=== PATIENT | male | born 1955 | race Caucasian/White ===

== ENCOUNTER → 2017-10-10 00:39 | Outpatient (CLI) | payer BC, SELFPAY ==
[2017-10-10 10:09] LABS: Hemoglobin A1C 8.1 % (4.5-6.2)
[2017-10-10 10:54] LABS: Cholesterol 232 mg/dL (50-200); HDL Cholesterol 35 mg/dL (40-60); LDL CHOLESTEROL 164 mg/dL (<100); Triglyceride 197 mg/dL (30-150)
== END ==
PROVIDERS: PCP Family Medicine; Visit Provider Family Medicine
DX: E11.21 Type 2 diabetes mellitus with diabetic nephropathy (principal); E78.2 Mixed hyperlipidemia
CPT/HCPCS: 36415; 80061; 83721; 83036

== ENCOUNTER → 2017-10-14 01:16 | Outpatient (CLI) | payer BC, SELFPAY ==
--- NOTE | 2017-10-14 12:30 | MERGE_ITS ---
*[facility]* *[facility]* [address] [place] [address] Date of study: 10/14/2017 Transthoracic Echocardiography M-mode, complete 2D, complete spectral Doppler, and color Doppler *STUDY CONCLUSIONS* Summary: 1. Left ventricle: The cavity size was normal. There was mild focal basal hypertrophy of the septum. Systolic function was normal. The estimated ejection fraction was 55-60%. Wall motion was normal; there were no regional wall motion abnormalities. Findings consistent with diastolic dysfunction. 2. Ascending aorta: The ascending aorta was mildly dilated. 4.1 cm. 3. Right ventricle: The cavity size was normal. Wall thickness was normal. Pacer wire noted in right ventricle. Systolic function was normal. 4. Pulmonary arteries: Pulmonary systolic pressure was within the normal range, in the range of 30mm Hg to 35mm Hg. *PATIENT PRESENTATION* Height: 172.7cm ((68in) ) S/D Pressure: Weight: 117.9kg ((259.5lb) ) BSA: 2.43m^2 Test start time: 12:40 PM. Test stop time: 01:40 PM. PERFORMING Unknown PERFORMING [facility] ORDERING Amber Blandon REFERRING Amber Blandon FRANCHISE DEVELOPMENT MANAGER RT Rush (R)(CT), WALDO *PROCEDURE DATA* Procedure information: The patient was identified by two identifiers. This study was interpreted by [facility]. Pertinent images and digital data are archived for permanent storage and are available for subsequent review. Study status: Routine. Transthoracic echocardiography. M-mode, complete 2D, complete spectral Doppler, and color Doppler. A Transthoracic Echocardiogram was performed. Scanning was performed from the parasternal, apical, subcostal, and suprasternal notch acoustic windows. Images were obtained using an [id number] cardiac ultrasound machine. Image quality was adequate. Study completion: The patient tolerated the procedure well. There were no complications. History: PMH: Activity intolerance. SOB. *CARDIAC ANATOMY* Left ventricle: The cavity size was normal. There was mild focal basal hypertrophy of the septum. Systolic function was normal. The estimated ejection fraction was 55-60%. Wall motion was normal; there were no regional wall motion abnormalities. Findings consistent with diastolic dysfunction. Aortic valve: Trileaflet; normal thickness leaflets. Mobility was not restricted. Doppler: Transvalvular velocity was within the normal range. There was no stenosis. There was no significant regurgitation. VTI ratio of LVOT to aortic valve: 0.78. Valve area (VTI): 2.5cm^2. Indexed valve area (VTI): 1cm^2/m^2. Peak velocity ratio of LVOT to aortic valve: 0.6. Valve area (Vmax): 1.9cm^2. Indexed valve area (Vmax): 0.8cm^2/m^2. Mean velocity ratio of LVOT to aortic valve: 0.7. Valve area (Vmean): 2.3cm^2. Indexed valve area (Vmean): 0.9cm^2/m^2. Mean gradient (S): 2.2mm Hg. Peak gradient (S): 4.1mm Hg. Aorta: Aortic root: The aortic root was at upper normal limits. Ascending aorta: The ascending aorta was mildly dilated. 4.1 cm. Mitral valve: Structurally normal valve. Mobility was not restricted. Doppler: Transvalvular velocity was within the normal range. There was no evidence for stenosis. There was trivial regurgitation. Valve area by pressure half-time: 3.2cm^2. Indexed valve area by pressure half-time: 1.3cm^2/m^2. Peak gradient (D): 2.2mm Hg. Left atrium: The atrium was normal in size. Right ventricle: The cavity size was normal. Wall thickness was normal. Pacer wire noted in right ventricle. Systolic function was normal. Pulmonic valve: The pulmonary valve appears to be grossly normal. Doppler: Transvalvular velocity was within the normal range. There was no evidence for stenosis. There was no significant regurgitation. Tricuspid valve: Structurally normal valve. Doppler: Transvalvular velocity was within the normal range. There was no evidence for stenosis. There was trivial regurgitation. Pulmonary artery: Pulmonary systolic pressure was within the normal range, in the range of 30mm Hg to 35mm Hg. Right atrium: The atrium was normal in size. Pacer wire noted in right atrium. Pericardium: There was no pericardial effusion. Systemic veins: Inferior vena cava: The vessel was normal in size. Measurements Left ventricle Value Reference LV ID, ED, PLAX 5.2 cm 3.5 - 6.0 LV ID, ES, PLAX 3.1 cm 2.1 - 4.0 LV PW thickness, ED, PLAX 1.3 cm LV end-diastolic volume, 1-p A2C 80 ml LV ejection fraction, 1-p A2C 55 % LV end-diastolic volume, 1-p A4C 105 ml LV ejection fraction, 1-p A4C 61 % LV e', lateral 0.133 m/sec LV E/e', lateral 6 LV e', medial 0.088 m/sec LV E/e', medial 8 LV e', average 0.111 m/sec LV E/e', average 7 Ventricular septum Value Reference IVS thickness, ED, PLAX 1.1 cm LVOT Value Reference LVOT ID, A-P 2.0 cm LVOT area 3.2 cm^2 LVOT peak velocity, S 0.6 m/sec LVOT mean velocity, S 0.5 m/sec LVOT VTI, S 12.1 cm LVOT peak gradient, S 1.5 mm Hg LVOT mean gradient, S 1 mm Hg Stroke volume (SV), LVOT DP 39 ml Stroke index (SV/bsa), LVOT DP 16 ml/m^2 Aortic valve Value Reference Aortic valve peak velocity, S 1 m/sec Aortic valve mean velocity, S 0.7 m/sec Aortic valve VTI, S 15.5 cm Aortic mean gradient, S 2.2 mm Hg Aortic peak gradient, S 4.1 mm Hg VTI ratio, LVOT/AV 0.78 Aortic valve area, VTI 2.5 cm^2 Velocity ratio, peak, LVOT/AV 0.6 Aortic valve area, peak velocity 1.9 cm^2 Velocity ratio, mean, LVOT/AV 0.7 Aortic valve area, mean velocity 2.3 cm^2 Aortic valve area/bsa, mean velocity 0.9 cm^2/m^2 Aorta Value Reference Aortic root ID, ED 3.8 cm Ascending aorta ID, A-P, S 4.1 cm Left atrium Value Reference LA ID, A-P, ES 3.7 cm LA ID/bsa, A-P 1.5 cm/m^2 <=2.2 LA area, ES, A4C 21.2 cm^2 8.8 - 23.4 LA area, ES, A2C 18 cm^2 LA volume/bsa, ES, 1-p A4C 33 ml/m^2 LA volume, ES, 2-p 60 ml LA volume/bsa, ES, 2-p 25 ml/m^2 LA/aortic root ratio 0.98 Mitral valve Value Reference Mitral E-wave peak velocity 0.74 m/sec Mitral A-wave peak velocity 0.43 m/sec Mitral deceleration time (H) 238 ms 150 - 230 Mitral pressure half-time 69 ms Mitral peak gradient, D 2.2 mm Hg Mitral E/A ratio, peak 1.74 Mitral valve area, PHT, DP 3.2 cm^2 Pulmonary veins Value Reference Pulmonary vein peak velocity, S 0.75 m/sec Pulmonary vein peak velocity, D 0.56 m/sec Pulmonary vein velocity ratio, peak, 1.32 S/D Pulmonary vein A-wave reversal peak 0.29 m/sec velocity Tricuspid valve Value Reference Tricuspid regurg peak velocity 2.7 m/sec Tricuspid peak RV-RA gradient 28.7 mm Hg Right atrium Value Reference RA area, ES, A4C 19.3 cm^2 8.3 - 19.5 Legend: (L) and (H) janie values outside specified reference range. I have personally reviewed the images and have reviewed and edited the reported findings. Electronically signed by Nadeem Merino 10/14/2017 14:38
== END ==
PROVIDERS: PCP Family Medicine; Visit Provider Nurse Practitioner Primary Care
DX: R06.02 Shortness of breath (principal); I51.9 Heart disease, unspecified; Z95.0 Presence of cardiac pacemaker; R68.89 Other general symptoms and signs
CPT/HCPCS: 93306

== ENCOUNTER 2018-02-24 13:06 | Emergency (ER) | payer BC, SELFPAY ==
[2018-02-24 13:11] VITALS: BP 128/84; PULSE 82; RESP 16; TEMP 37; O2SAT 98
--- NOTE | 2018-02-24 13:12 | ED.GENADUL_ITS ---
Discharge Plan Disposition Patient Disposition: HOME Condition: Stable Discharge Details Chief Complaint: Nk/Back Pain Clinical Impression: Acute tonsillitis, Trismus Primary Care Provider: Melany Mazariegos ED Provider: Pedro Pride Home Meds and New Rx's Prescriptions: New amoxicillin-pot clavulanate 875-125 mg tablet 1 tab PO BID Qty: 14 RF: 0 Continued fluticasone 16 GM spray,suspension 2 spry NS DAILY Qty: 1 RF: 3 aspirin 81 MG tablet,chewable 81 mg PO DAILY Qty: 90 RF: 3 ProAir HFA 8.5 GM HFA aerosol inhaler 1 - 2 puff Inhalation Q4H PRN Qty: 1 RF: 1 Januvia 100 MG tablet 100 mg PO DAILY Qty: 30 RF: 2 lisinopril 10 MG tablet 10 mg PO DAILY Qty: 90 RF: 4 Rosuvastatin Calcium 40 MG tablet 40 mg PO DAILY Qty: 90 RF: 4 metformin 1,000 MG tablet 1,000 mg PO BID Qty: 180 RF: 4 meloxicam 15 mg tablet 15 mg PO DAILY PRN (Reason: pain) Qty: 30 RF: 2 Discharge Instructions Instructions: Pharyngitis (ED) Additional Instructions: follow up with your primary care provider next week especially if symptoms continue if you have difficulty breathing, severe worsening pain or new symptoms such as severe headaches or abdominal pain return to the emergency department Medical Decision Making 63 yo male comes in with chief complaint of throat pain, difficulty swallowing, and posterior neck pain.Has no fevers or meningismus or headaches to suggest certified mortician infection. Does have some trismus, mild posterior pharynx erythema. Does also have pain over hyoid, suspect pharyngitis but given the pain over hyoid and trismus will obtain ct to eval for rpa, epiglotitis, captain waiter pt remains stable, ambulating without symptoms, labs show no acute abnormalities, per Dr. Jauregui has tonsillitis on ct otherwise no acute findings. Will start abx to cover for bacterial infection, advised f/u with pcp and return precautions given Differential Diagnosis rpa, captain waiter, epiglotitis, ludwigs Imaging Data Radiologic Study: Attestation: I personally reviewed and interpreted this imaging study as follows: Imaging: X-Ray Radiologist's impression: tonsillitis, no acute findings Lab Data Lab results reviewed: Yes I reviewed the patient's lab results. HPI General Mode of arrival: ambulatory . Date/Time Provider Initiated Documentation: 02/24/18 13:07 . Limitations to Documentation: no limitations . Information obtained by: patient . History of Present Illness 63 year old M presents to the emergency department with the chief complaint of throat pain, described as moderate, with intensity rated at 5. Quality is described as aching, and is localized to the mouth and neck. Patient reports no radiation. Patient started experiencing this day(s) (3) and it has been constant. No relieving factors improve symptom(s), No exacerbating factors reported . Patient notes no other symptoms.. Patient did receive the following treatments prior to arrival, none Related Data Home Medications Medication Instructions Recorded Confirmed fluticasone 2 spry NS DAILY #1 spray 01/10/15 02/24/18 aspirin 81 mg PO DAILY #90 tab-cap 04/16/16 02/24/18 ProAir HFA 1 - 2 puff INHALATION Q4H PRN #1 11/26/16 02/24/18 inhaler Januvia 100 mg PO DAILY #30 tab-cap 12/18/16 02/24/18 lisinopril 10 mg PO DAILY #90 tab-cap 02/06/17 02/24/18 metformin 1,000 mg PO BID #180 tab-cap 09/28/17 02/24/18 amoxicillin-pot clavulanate 1 tab PO BID #14 tab 02/24/18 meloxicam 15 mg tablet 15 mg PO DAILY PRN #30 tab-cap 02/24/18 02/24/18 Previous Rx's Medication Instructions Recorded ProAir HFA 1 - 2 puff INHALATION Q4H PRN #1 11/26/16 inhaler Januvia 100 mg PO DAILY #30 tab-cap 12/18/16 lisinopril 10 mg PO DAILY #90 tab-cap 02/06/17 metformin 1,000 mg PO BID #180 tab-cap 09/28/17 amoxicillin-pot clavulanate 1 tab PO BID #14 tab 02/24/18 meloxicam 15 mg tablet 15 mg PO DAILY PRN #30 tab-cap 02/24/18 Allergies Allergy/AdvReac Type Severity Reaction Status Date / Time codeine AdvReac Intermediate chest pain Unverified 02/24/18 13:14 bee stings Allergy Intermediate pt would Uncoded 02/24/18 13:14 want to sleep Review of Systems Review of Systems All systems reviewed & are unremarkable except as noted in HPI and below Constitutional Denies chills, Denies fever(s) and Denies weakness Cardiovascular Denies chest pain and Denies dyspnea Respiratory Denies dyspnea Gastrointestinal Denies abdominal pain, Denies nausea and Denies vomiting Musculoskeletal Denies joint swelling Neurologic Denies weakness Psychiatric Denies depression Endocrine Denies heat intolerance PFSH Medical History Cardiac arrhythmia Colon polyp Diabetes Hyperlipidemia Incisional hernia Kidney stones Morbid obesity MILTON (obstructive sleep apnea) Partial small bowel obstruction Small bowel obstruction due to adhesions Surgical History Appendectomy (04/07/11) Colonoscopy - MAC (05/26/16) Hernia Repair, Incisional (11/21/15) Laparotomy Pacemaker Social History Smoking/Tobacco Use Status: Former Tobacco Use Exam Const General: no acute distress Orientation: alert HENMT Head: normal to inspection Ears: external ears normal General nose exam: external nose normal Mouth: moist mucous membranes Eyes General: appearance normal, both eyes and all related structures Neck Neck: normal visual inspection Resp Effort & Inspection: normal respiratory effort and able to speak in complete sentences Cardio Rate: regular rate Skin General skin exam: no rashes or lesions noted Neuro General: alert and oriented x3 Extrem General: normal to inspection Psych Mental Status: mental status grossly normal
--- NOTE | 2018-02-24 13:23 | DI.CT_ITS ---
SYMPTOMS/DIAGNOSIS: NECK PAIN AND DIFFICULTY SWALLOWING NECK CT: The study was carried out according to the usual protocol without contrast enhancement. Due to the patient's body habitus, sagittal and coronal images could not be obtained and the study is composed only of the axial projections. There is considerable tonsillar prominence bilaterally. There is no evidence of a peritonsillar abscess. There is no evidence of an extra-tonsillar mass or adenopathy. The salivary glands as visualized appear intact. The pharynx and larynx and visualized portions of the trachea appear intact. Note is made of pacing wires in place in the right atrium and right ventricle. The heart is not enlarged. There is no demonstrated pericardial effusion. There is no pleural effusion. The visualized portions of the mid lung and lower lobe regions appear grossly unremarkable. There is no demonstrated aortic aneurysm or evidence of a pulmonary mass or adenopathy. Incidentally, the thyroid gland is normal. No adenopathy is noted in the neck. SUMMARY: Findings consistent with tonsillitis. There is no apparent peritonsillar abscess.
[2018-02-24] MEDS: Dexamethasone 10 MG/ML VIAL IVP (13:31)
[2018-02-24] MEDS: Normal Saline 1,000 ML 1000 ML IV (13:31)
[2018-02-24] MEDS: Normal Saline Flush 10 ML SYR IVP (13:32)
[2018-02-24 13:45] LABS: Lactate-non-spesis 1.2 mmol/L (0.6-1.4)
[2018-02-24 13:59] LABS: Abs Immature Grans 0.03 k/cumm (0.0-0.09); Absolute Basophil Count 0.02 k/cumm (0.0-0.2); Absolute Eosinophil Count 0.33 k/cumm (0.0-0.7); Absolute Lymphocyte Count 2.47 k/cumm (1.2-3.4); Absolute Monocyte Count 0.71 k/cumm (0.11-0.7); Absolute Neutrophil Count 4.88 k/cumm (1.2-6.7); Basophils % 0.2; Eosinophils % 3.9; HCT 41.8 % (40.0-50.0); HGB 14.4 g/dL (13.5-17.5); Immature Grans % 0.4; Lymphocytes % 29.3; Mean Corp. HGB Concentration 34.4 g/dL (32.0-36.0); Mean Corpuscular Hemoglobin 30.9 pg (27.0-33.0); Mean Corpuscular Volume 89.7 fL (80-95); Mean Platelet Volume 10.8 fL (8.0-11.0); Monocytes % 8.4; Neutrophils % 57.8; Platelet Count 188 x1000/uL (130-400); RBC 4.66 m/cumm (4.50-6.00); RBC Distribution Width 12.7 % (11.8-14.1); White Blood Cell Count 8.44 k/cumm (4.4-10.8)
[2018-02-24 14:01] LABS: ALT 35 U/L (12-78); AST 14 U/L (15-37); Albumin 3.6 g/dL (3.4-5.0); Alkaline Phosphatase 86 U/L (46-116); Anion Gap 9.8 mmol/L (3-11); BUN 18 mg/dL (7-18); Bilirubin, Total 0.2 mg/dL (0.2-1.0); CO2 27.2 mmol/L (21.0-32.0); CREATININE 0.86 mg/dL (0.70-1.30); Calcium 9.2 mg/dL (8.5-10.1); Chloride 102 mmol/L (98-107); Glucose 210 mg/dL (70-100); Magnesium 2.1 mg/dL (1.8-2.4); Potassium 4.2 mmol/L (3.5-5.1); Sodium 139 mmol/L (136-145); Total Protein 7.6 g/dL (6.4-8.2)
[2018-02-24] MEDS: Omnipaque 350 MG/ML 100 ML BTL IJ (14:03)
== END 2018-02-24 15:27 | disposition home or self-care (01) ==
PROVIDERS: Emergency Provider Emergency Medicine; PCP Family Medicine
DX: J03.90 Acute tonsillitis, unspecified (principal); R25.2 Cramp and spasm
CPT/HCPCS: 36415; 70491; 80053; 96361; 96374; 99285; 83605; 83735; 85025; 99284; J1100; J3490

== ENCOUNTER 2018-11-25 07:36 | Outpatient (CLI) | payer OTHER, SELFPAY ==
[2018-11-25 11:08] LABS: COMMENT (LAB VIEW ONLY) 114.09 mg/dL
[2018-11-25 11:09] LABS: Microalb ug/mg Crea 241.3 ug/mg Cr
[2018-11-25 11:15] LABS: Hemoglobin A1C 9.3 % (4.5-6.2)
[2018-11-25 11:19] LABS: ALT 85 U/L (16-63); AST 44 U/L (15-37); Alkaline Phosphatase 94 U/L (46-116); Anion Gap 14.5 mmol/L (3-11); BUN 17 mg/dL (7-18); Bilirubin, Total 0.2 mg/dL (0.2-1.0); CO2 24.5 mmol/L (21.0-32.0); CREATININE 1.01 mg/dL (0.70-1.30); Calcium 9.4 mg/dL (8.5-10.1); Calculated LDL 122 mg/dL; Chloride 102 mmol/L (98-107); Cholesterol 216 mg/dL (50-200); Glucose 233 mg/dL (70-100); HDL Cholesterol 33 mg/dL (40-60); Potassium 4.3 mmol/L (3.5-5.1); Sodium 141 mmol/L (136-145); Total Protein 7.3 g/dL (6.4-8.2); Triglyceride 309 mg/dL (30-150)
== END 2018-11-25 07:56 ==
PROVIDERS: PCP Family Medicine; Visit Provider Family Medicine
DX: E78.5 Hyperlipidemia, unspecified (principal); E11.9 Type 2 diabetes mellitus without complications
CPT/HCPCS: 36415; 80053; 80061; 82043; 82570; 83036

== ENCOUNTER 2019-08-30 01:17 | Outpatient (CLI) | payer OTHER, SELFPAY ==
[2019-08-30 10:09] LABS: Hemoglobin A1C 12.2 % (3.8-5.6)
[2019-08-30 10:53] LABS: AST 48 U/L (15-37); Albumin 4.1 g/dL (3.4-5.0); Alkaline Phosphatase 91 U/L (46-116); Anion Gap 16.4 mmol/L (3-11); BUN 23 mg/dL (7-18); Bilirubin, Total 0.4 mg/dL (0.2-1.0); CO2 20.6 mmol/L (21.0-32.0); CREATININE 1.11 mg/dL (0.70-1.30); Calcium 9.6 mg/dL (8.5-10.1); Chloride 98 mmol/L (98-107); Glucose 316 mg/dL (74-106); Potassium 4.1 mmol/L (3.5-5.1); Sodium 135 mmol/L (136-145); Total Protein 7.4 g/dL (6.4-8.2)
[2019-08-30 11:23] LABS: ALT 77 U/L (16-63)
[2019-08-30 13:36] LABS: COMMENT (LAB VIEW ONLY) 122.62 mg/dL
[2019-08-30 13:38] LABS: Microalb ug/mg Crea 339.7 ug/mg Cr
[2019-08-30 14:42] LABS: Cholesterol 293 mg/dL (<200); HDL Cholesterol 34 mg/dL (40-60); Triglyceride 589 mg/dL (<150)
[2019-08-30 14:57] LABS: LDL CHOLESTEROL 158 mg/dL (<100)
== END 2019-08-30 01:37 ==
PROVIDERS: PCP Family Medicine; Visit Provider Family Medicine
DX: E11.9 Type 2 diabetes mellitus without complications (principal)
CPT/HCPCS: 36415; 80053; 80061; 83721; 82043; 82570; 83036

== ENCOUNTER 2019-09-30 01:20 | Outpatient (CLI) | payer OTHER, SELFPAY ==
--- NOTE | 2019-09-30 14:00 | NS.NUTBLAN_ITS ---
Trae comes as an outpatient with referral for DM w/ elevated BG and A1C (>12). He is currently ~275lb w/ BMI >40 indicating morbid obesity. He has hx cardiac arrhythmia. Noted: K+ levels were WNL. His main concerns are potential for hypoglycemia r/t recent increase in insulin dose, help with weight loss, and he reports he needs a review of meal planning and appropriate food choices and portions. His BG levels were in the 300's until a recent titrated increase of Lantus from 15 to 45 units. He is on 1000mg metformin BID. Trae reports that he feels less tired and has less blurry vision at this time. A random glucometer reading revealed 289mg/dl ~ 2 hours postprandial. He stated that he had a dream bar dessert and sometimes struggles with poor food choices. He arrived with a very detailed BG record and recommendations from pharmacist for daily CHO and k/shelli intake. INTERVENTION: Reviewed CHO counting, s/s for hypo and hyperglycemia and meal planning tips. Provided take home literature and online references to facilitate mindfulness r/t DM. Encouraged fresh whole foods and cooking more vegetables as a lifestyle change to help w/ DM self management.. Demonstrated carbViaCube and cals phone janae to help with simplified approach to CHO content as r/t portion sizes and food choices. Reviewed the desired BG goals and explained the concept of relative hypoglycemia. Recommended short walk of 100meters/day adding 1 step each day to goal of one mile.Reviewed importance of pocket setter lockstitch, dentist and automation developer being made aware of recent developments with his DM. Recommended <60g/CHO per meal period. Established safe parameters for weight loss. MONITOR and EVALUATE: Trae may be a good candidate for CGM per MD approval. He will F/U with this RD in 60 days for a review of weight and BG tracking. He will get podiatry referral from PCP. Time Spent : 1 hr/ 4 units
== END 2019-09-30 01:40 ==
PROVIDERS: PCP Family Medicine; Visit Provider Dietitian, Registered
DX: E11.65 Type 2 diabetes mellitus with hyperglycemia (principal); Z79.4 Long term (current) use of insulin; E66.01 Morbid (severe) obesity due to excess calories; Z71.3 Dietary counseling and surveillance
CPT/HCPCS: 97802

== ENCOUNTER 2020-11-22 03:06 | Outpatient (CLI) | payer SELFPAY ==
[2020-11-22 10:37] LABS: COMMENT (LAB VIEW ONLY) 264.88 mg/dL
[2020-11-22 10:37] LABS: ALT 54 U/L (16-63); AST 19 U/L (15-37); Alkaline Phosphatase 112 U/L (46-116); Anion Gap 11.1 mmol/L (3-11); BUN 16 mg/dL (7-18); Bilirubin, Total 0.3 mg/dL (0.2-1.0); CO2 23.9 mmol/L (21.0-32.0); CREATININE 1.2 mg/dL (0.70-1.30); Calcium 9.3 mg/dL (8.5-10.1); Chloride 104 mmol/L (98-107); Cholesterol 323 mg/dL (<200); Glucose 238 mg/dL (74-106); HDL Cholesterol 32 mg/dL (40-60); Potassium 4.3 mmol/L (3.5-5.1); Sodium 139 mmol/L (136-145); TSH 1.04 uIU/mL (0.36-3.74); Total Protein 7.1 g/dL (6.4-8.2); Triglyceride 529 mg/dL (<150)
[2020-11-22 10:53] LABS: Microalb ug/mg Crea 305.8 ug/mg Cr
[2020-11-22 10:55] LABS: LDL CHOLESTEROL 179 mg/dL (<100)
[2020-11-22 17:10] LABS: PSA, Screening 0.8 ng/mL (0.0-4.5)
== END 2020-11-22 03:07 | disposition home or self-care (01) ==
LOC: LBO 03:06
PROVIDERS: PCP Family Medicine; Visit Provider Family Medicine
DX: E11.9 Type 2 diabetes mellitus without complications; K40.00 Bilateral inguinal hernia, with obstruction, without gangrene, not specified as recurrent
CPT/HCPCS: 36415; 80053; 80061; 83721; 84153; 82043; 82570; 84443

== ENCOUNTER 2021-01-07 04:17 | Emergency (ER) | payer MEDICARE, SELFPAY ==
[2021-01-07] VITALS (16 sets, daily range): BP systolic 103–164; BP diastolic 58–95; PULSE 89–111; RESP 20–21; TEMP 36.1–36.8; O2SAT 92–97
--- NOTE | 2021-01-07 04:30 | DI.RAD_ITS ---
Exam(s) XR PORTABLE CHEST AP EXAM: XR PORTABLE CHEST AP CLINICAL HISTORY: cough. TECHNIQUE: 2D digital imaging was performed. COMPARISON: CR CHEST 2 VIEWS PA,LAT from 11/18/2016 FINDINGS: Mild cardiomegaly. Bipolar right subclavian pacemaker again noted with lead tips in RA and RV, uncha nged There is a mild pulmonary venous hypertension pattern but no airspace pulmonary edema and no pleural effusions evident. Subtle suggestion of patchy infiltrates both lungs The mediastinum is not widened. IMPRESSION: Bipolar pacemaker. No pulmonary edema or pleural effusions.However, there is suggestion of patchy in filtrates. If clinically indicated follow-up CT scan can be performed. DATA REPOSITORY: RADIATION DOSE DELIVERED: All CT scans at this facility use at least one of these dose optimization techniques: automated exposure control; mA and/or kV adjustment per patient size (includes targeted e xams where dose is matched to clinical indication); or iterative reconstruction.
--- NOTE | 2021-01-07 04:36 | W.ED.GENAD ---
Discharge Plan Disposition Patient Disposition: HOME Condition: Improving Discharge Details Clinical Impression: COVID-19 Primary Care Provider: Melany Mazariegos ED Provider: Javed Martinez Home Meds and New Rx's Prescriptions: Continued lisinopril 10 mg tablet 10 mg PO DAILY Qty: 90 RF: 4 metformin 1,000 mg tablet 1,000 mg PO BID Qty: 180 RF: 4 sertraline 25 mg tablet 25 mg PO DAILY Qty: 30 RF: 3 Novolin N Flexpen 100 unit/mL (3 mL) insulin pen 35 - 45 unit subcut BID Qty: 15 RF: 6 aspirin 81 MG tablet,chewable 81 mg PO DAILY Qty: 90 RF: 3 (DME) pen needle, diabetic [BD Ultra-Fine Short Pen Needle] 31 gauge x 5/16 needle See Rx Instructions .ROUTE .MEDSUPPLY Qty: 90 RF: 4 meloxicam 15 mg tablet 15 mg PO DAILY PRN (Reason: pain) Qty: 30 RF: 2 (DME) pen needle, diabetic [BD Ultra-Fine Short Pen Needle] 31 gauge x 5/16 needle See Rx Instructions .MEDSUPPLY Qty: 90 RF: 4 atorvastatin 40 mg tablet 80 mg PO DAILY Qty: 90 RF: 0 Discharge Instructions Instructions: Viral Syndrome (ED) Additional Instructions: I recommend you take vitamin D3 2000 international units daily, vitamin C 1000 mg twice daily, and zinc 220 mg once daily. You may continue to monitor your oxygen saturation at home. Measurements to be taken at rest while breathing quietly. Extremity should be warm prior to the measurement. Do not except the first number that appears on the screen but observe for 30 to 60 seconds. Return to the emergency department if your resting oxygen level drops below 90% on serial readings. Home to rest today. Return to the emergency room for any acute concerns. Discharge Data Discharge Date/Time-TO BE ENTERED AT DEPARTURE: 01/07/21 08:09 Medical Decision Making 65-year-old male presents with approximately 3 days of cough, congestion with some production of white sputum and sore throat. States that his was diagnosed with COVID-19. He states he underwent testing but the swab was not couriered in time and the test was invalid. Now presents ER for evaluation. He arrives ER afebrile, oxygenating normally, with a reassuring exam. Screening chest x-ray and COVID-19 test obtained. Chest x-ray with patchy pulmonary opacities. Patient is positive for Covid. I consented him for treatment with monoclonal antibody. He otherwise is stable and following the monoclonal antibody infusion is appropriate for discharge to home. HPI General Mode of arrival: ambulatory. Date/Time Provider Initiated Documentation: 01/07/21 04:17. Limitations to Documentation: no limitations. Information obtained by: patient. History of Present Illness 65 year old M presents to the emergency department with the chief complaint of Sore throat, cough, Covid exposure from his , described as mild, and is localized to the chest. Patient reports no radiation. Patient started experiencing this day(s) and it has been intermittent. No relieving factors improve symptom(s), No exacerbating factors reported . Patient notes cough; denies fever/chills, headaches, loss of appetite, malaise and weakness. Patient did receive the following treatments prior to arrival, none Related Data Home Medications Medication Instructions Recorded Confirmed aspirin 81 mg PO DAILY #90 tab-cap 04/16/16 01/07/21 pen needle, diabetic 31 gauge x #90 each 12/07/18 12/21/2007/22 meloxicam 15 mg tablet 15 mg PO DAILY PRN #30 tab-cap 02/27/20 01/07/21 pen needle, diabetic 31 gauge x #90 ea 05/10/20 12/21/2007/22 lisinopril 10 mg tablet 10 mg PO DAILY #90 tab-cap 11/19/20 01/07/21 metformin 1,000 mg tablet 1,000 mg PO BID #180 tab-cap 11/19/20 01/07/21 sertraline 25 mg tablet 25 mg PO DAILY #30 tab 11/20/20 01/07/21 atorvastatin 40 mg tablet 80 mg PO DAILY #90 tab 11/28/20 01/07/21 insulin NPH isoph U-100 human 100 35 - 45 unit SUBCUT BID #15 ml 12/21/20 01/07/21 unit/mL (3 mL) subcutaneous pen Previous Rx's Medication Instructions Recorded pen needle, diabetic 31 gauge x #90 each 12/07/1807/22 meloxicam 15 mg tablet 15 mg PO DAILY PRN #30 tab-cap 02/27/20 pen needle, diabetic 31 gauge x #90 ea 03/04/21 5/16 lisinopril 10 mg tablet 10 mg PO DAILY #90 tab-cap 11/19/20 metformin 1,000 mg tablet 1,000 mg PO BID #180 tab-cap 11/19/20 sertraline 25 mg tablet 25 mg PO DAILY #30 tab 11/20/20 atorvastatin 40 mg tablet 80 mg PO DAILY #90 tab 11/28/20 insulin NPH isoph U-100 human 100 35 - 45 unit SUBCUT BID #15 ml 12/21/20 unit/mL (3 mL) subcutaneous pen Allergies Allergy/AdvReac Type Severity Reaction Status Date / Time codeine AdvReac Intermediate chest pain Verified 01/07/21 04:24 bee stings Allergy Intermediate pt would Uncoded 01/07/21 04:24 want to sleep General Stated Complaint: RespSymp FELI: 4 Review of Systems Narrative: Denies body ache, no change to taste or smell, no short of breath. 8 systems reviewed and otherwise negative [facility] Medical History Cardiac arrhythmia had dizziness and was diagnosed with sick sinus syndrome with 17 sec pauses. No issues since the pacemaker was placed Colon polyp Diabetes Diabetes mellitus type 2, insulin dependent Hyperlipidemia Incisional hernia s/p repair 2016 Kidney stones Morbid obesity MILTON (obstructive sleep apnea) Partial small bowel obstruction s/p surgery in 2016 Small bowel obstruction due to adhesions x2 in 2011 Surgical History Appendectomy (04/07/11) Colonoscopy - MAC (05/26/16) Hernia Repair, Incisional (11/21/15) with enterolysis and small bwoel resection for PSBO Laparotomy with enterolysis and incidental appendectomy in 2011 Pacemaker Family History Mother , 94 No problems noted. Father , 71 Stroke Colon cancer Parkinson disease Sister Colon cancer Stroke Sister Stroke Sister Fibromyalgia Brother , 78 Cancer Son No problems noted. Son No problems noted. Maternal Grandfather , 83 No problems noted. Maternal Grandmother , 76 No problems noted. Social History (Updated 11/21/20 @ 17:28 by Anabel Herr) Smoking/Tobacco Use Status: Current every day Tobacco Type: cigarettes Years smoked: 40 Tobacco: How many years used: 40 Quit status: has quit before Smoking risk assessment performed?: Yes Alcohol Intake: never Drug use: Never Substance use type: does not use Caregiver/Support person: No Household members: significant other Housing: house Communication Needs: Deaf Do you need help understanding health information?: Rarely Pets and animals: Yes Pets and animals: dog(s) Sexually active: No Do you think of yourself as: straight/heterosexual Current gender identity: male What is your relationship status?: How often do you talk on the phone with friends or family?: once per week How often do you get together with friends or relatives?: never Do you belong to any clubs or organized social groups?: yes Panel score (0-1 are the most socially isolated patients): 2 What type of physical activity do you participate in: none Duration: < 15 minutes/day Kalina/Pentecostal: No preference Special kalina needs: No Helmet use: No Drive intox 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 Pleasant, well groomed, interactive. HEAD: Normocephalic, atraumatic ENT: Mucous membranes moist, oropharynx unremarkable, External ear exam unremarkable EYES: PERRL, EOMI NECK: Full ROM, no MIN, no menigismus CHEST/RESP: Nontender, clear to auscultation bilateral, no wheeze/rhonchi/rales CARDIOVASCULAR: RRR, no murmur, rub eddie. 2+ Rad pulse bilateral ABDOMEN: Soft, nontender, no mass. +Bowel sounds EXT: Full ROM, no edema, no rash Neuro: Grossly normal neurologic exam, conversant, interactive. Psych: Speech fluent, thoughts congruent, affect normal Course Vital Signs Vital signs: Vital Signs Temperature 36.1 C L 01/07/21 04:21 Pulse 97 H 01/07/21 04:21 Respiratory Rate 01/07/21 04:21 Blood Pressure 164/95 H 01/07/21 04:21 Pulse Oximetry 97 01/07/21 04:21 Temperature 36.1 C L 01/07/21 04:21 Temperature Source Temporal Artery Scan 01/07/21 04:21 Pulse 97 H 01/07/21 04:21 Respiratory Rate 01/07/21 04:21 Respiratory Effort Non-Labored 01/07/21 04:25 Respiratory Depth Normal 01/07/21 04:25 Blood Pressure 164/95 H 01/07/21 04:21 Blood Pressure Position Sitting 01/07/21 04:21 Pulse Oximetry 97 01/07/21 04:21 Oxygen Delivery Method Room Air 01/07/21 04:21 Oxygen Flow Rate 0 01/07/21 04:21 Pain Level 0 01/07/21 04:21
--- NOTE | 2021-01-07 05:04 | DI.VRAD_ITS ---
PROCEDURE INFORMATION: Exam: XR Chest Exam date and time: 01/07/2021 4:36 AM Age: 65 years old Clinical indication: Cough; Prior surgery; Surgery date: 6+ months; Surgery type: Pacemaker TECHNIQUE: Imaging protocol: XR of the chest. Views: 1 view. COMPARISON: CR CHEST 2 VIEWS PA,LAT 11/18/2016 6:34 AM FINDINGS: Lungs: Patchy pulmonary opacities may reflect pneumonia in the correct clinical setting. Pleural spaces: Unremarkable. No pleural effusion. No pneumothorax. Heart/Mediastinum: Unremarkable. No cardiomegaly. Bones/joints: Unremarkable. IMPRESSION: Patchy pulmonary opacities may reflect pneumonia in the correct clinical setting. Dictated and Authenticated by: Jose E Randle MD. Ordering:TAVARES Burt MD
[2021-01-07 05:39] LABS: Source Nasal/Nares
[2021-01-07 06:13] LABS: COVID-19 PCR POSITIVE (Negative)
== END 2021-01-07 08:09 | disposition home or self-care (01) ==
LOC: ER 07:56
PROVIDERS: Emergency Provider Emergency Medicine; PCP Family Medicine
DX: U07.1 COVID-19 (principal); R05.1 Acute cough; R09.89 Other specified symptoms and signs involving the circulatory and respiratory systems; J02.9 Acute pharyngitis, unspecified; R91.8 Other nonspecific abnormal finding of lung field; Z20.822 Contact with and (suspected) exposure to COVID-19
CPT/HCPCS: 87635; 96365; 99284; 71045

== ENCOUNTER 2021-06-13 02:09 | Outpatient (CLI) | payer MEDICARE, SELFPAY ==
[2021-06-13 07:53] LABS: Hemoglobin A1C 12.2 % (<5.7)
[2021-06-13 08:07] LABS: ALT 37 U/L (16-63); AST 16 U/L (15-37); Albumin 3.5 g/dL (3.4-5.0); Alkaline Phosphatase 102 U/L (46-116); Anion Gap 10.6 mmol/L (3-11); BUN 24 mg/dL (7-18); Bilirubin, Total 0.3 mg/dL (0.2-1.0); CO2 26.4 mmol/L (21.0-32.0); CREATININE 0.9 mg/dL (0.70-1.30); Calcium 9.1 mg/dL (8.5-10.1); Chloride 103 mmol/L (98-107); Cholesterol 347 mg/dL (<200); Glucose 192 mg/dL (74-106); HDL Cholesterol 37 mg/dL (40-60); Potassium 4.1 mmol/L (3.5-5.1); Sodium 140 mmol/L (136-145); Triglyceride 610 mg/dL (<150)
[2021-06-13 08:08] LABS: COMMENT (LAB VIEW ONLY) 167.15 mg/dL
[2021-06-13 08:09] LABS: Microalb ug/mg Crea 471.4 ug/mg Cr
[2021-06-13 08:18] LABS: LDL CHOLESTEROL 180 mg/dL (<100)
== END 2021-06-13 02:10 | disposition home or self-care (01) ==
LOC: LBO 02:09
PROVIDERS: PCP Family Medicine; Visit Provider Family Medicine
DX: I10 Essential (primary) hypertension (principal); E11.9 Type 2 diabetes mellitus without complications; Z79.4 Long term (current) use of insulin
CPT/HCPCS: 36415; 80053; 80061; 83721; 82043; 82570; 83036

== ENCOUNTER 2021-07-25 03:56 | Outpatient (RCR) | payer MEDICARE, SELFPAY ==
--- NOTE | 2021-07-25 13:00 | HOLTER_ITS ---
APPROVED REPORT Conclusion This is a 48-hour Holter monitor Rhythm throughout was sinus with an average heart rate of 88. Minimum was 62, maximum 127 There were rare atrial and ventricular ectopic beats There were rare episodes of ventricular demand pacing There was no atrial fibrillation, no high-grade AV block, no pauses greater than 3 seconds No patient symptoms were reported
== END 2021-08-06 23:59 | disposition home or self-care (01) ==
LOC: RT 03:56
PROVIDERS: PCP Nurse Practitioner; Visit Provider Family Medicine
DX: R00.0 Tachycardia, unspecified (principal)
CPT/HCPCS: 93227; 93225; 93226

== ENCOUNTER → 2021-07-26 13:52 | Outpatient (BNVA) | payer MEDICARE, SELFPAY | PROVIDERS: PCP Nurse Practitioner; Referring Provider Family Medicine; Visit Provider Physical Therapy Assistant | DX: Z12.11 Encounter for screening for malignant neoplasm of colon (principal); Z80.0 Family history of malignant neoplasm of digestive organs; Z86.010 Personal history of colon polyps ==

== ENCOUNTER 2022-06-25 07:51 | Outpatient (CLI) | payer MEDICARE, SELFPAY | END 2022-06-25 07:52 | disposition home or self-care (01) | LOC: DI.CARD 07:52 | PROVIDERS: PCP Nurse Practitioner Family; Visit Provider Physician Assistant | CPT/HCPCS: 93010 ==

== ENCOUNTER 2022-07-23 08:50 | Outpatient (CLI) | payer MEDICARE, SELFPAY ==
--- NOTE | 2022-07-23 08:45 | RT.EKG_ITS ---
APPROVED REPORT Exam: Resting ECG Reason for Exam: mi Patient Location: O HR:74 bpm ECG Measurements Heart Rate 74 AXIS IA 69 P 0 QRSd 101 QRS 32 QT 375 T -71 QTc 416 Conclusion Ventricular-paced complexes...other complexes also detected No further rhythm analysis attempted due to paced rhythm Nonspecific T abnormalities, diffuse leads...T <-0.10mV, ant/lat/inf
== END 2022-07-23 08:51 | disposition home or self-care (01) ==
LOC: DI.CARD 08:51
PROVIDERS: PCP Nurse Practitioner Family; Visit Provider Physician Assistant
DX: I21.4 Non-ST elevation (NSTEMI) myocardial infarction (principal); I44.2 Atrioventricular block, complete
CPT/HCPCS: 93010

== ENCOUNTER → 2022-07-23 13:56 | Outpatient (BNVA) | payer MEDICARE, SELFPAY | PROVIDERS: PCP Nurse Practitioner Family; Visit Provider Physician Assistant | DX: Z45.010 Encounter for checking and testing of cardiac pacemaker pulse generator [battery] (principal); I25.2 Old myocardial infarction | CPT/HCPCS: 93005; 93279; 99212 ==

== ENCOUNTER 2022-09-01 09:10 | Outpatient (CLI) | payer MEDICARE, SELFPAY ==
--- NOTE | 2022-09-01 09:00 | RT.EKG_ITS ---
APPROVED REPORT Exam: Resting ECG Reason for Exam: history of mi Patient Location: O HR:82 bpm ECG Measurements Heart Rate 82 AXIS OK 71 P 0 QRSd 98 QRS 23 QT 372 T -59 QTc 435 Conclusion Sinus rhythm with demand ventricular pacing
== END 2022-09-01 09:11 | disposition home or self-care (01) ==
LOC: DI.CARD 09:11
PROVIDERS: PCP Nurse Practitioner Family; Visit Provider Internal Medicine Cardiovascular Disease
DX: I21.4 Non-ST elevation (NSTEMI) myocardial infarction (principal); I44.2 Atrioventricular block, complete; Z95.0 Presence of cardiac pacemaker
CPT/HCPCS: 93010

== ENCOUNTER → 2022-09-01 13:47 | Outpatient (BNVA) | payer MEDICARE, SELFPAY | PROVIDERS: PCP Nurse Practitioner Family; Referring Provider Nurse Practitioner Family; Visit Provider Internal Medicine Cardiovascular Disease | DX: I25.2 Old myocardial infarction (principal); Z95.5 Presence of coronary angioplasty implant and graft; E11.42 Type 2 diabetes mellitus with diabetic polyneuropathy; Z95.0 Presence of cardiac pacemaker | CPT/HCPCS: 93005; 99203; 99213 ==

== ENCOUNTER → 2022-11-19 01:02 | Outpatient (CLI) | payer MEDICARE, SELFPAY ==
--- NOTE | 2022-11-19 07:05 | DI.CTLCSR_ITS ---
Exam(s) CT CHEST LUNG CANCER SCREEN EXAM: CT CHEST LUNG CANCER SCREEN CLINICAL HISTORY: Screening for lung cancer,current smoker, f17.210. TECHNIQUE: Imaging Protocol: Low Dose Technique CONTRAST MATERIAL: None COMPARISON: CR,XR XR PORTABLE CHEST AP from 01/07/2021 FINDINGS: CHEST: LUNGS: There are few tiny bilateral nodules which are more evident on the axial MIP images than on th e 2 millimeters slice thickness images. These have benign appearance.. There is a pleural-based 3 m illimeter nodule in the lateral aspect the right middle lobe. No confluent infiltrates. No pleural effusions. No significant findings in the trachea and mainstem bronchi. MEDIASTINUM: There is no obvious hilar nor mediastinal adenopathy. CARDIAC: Heart size is normal. There is no pericardial effusion.Bipolar right subclavian pacemaker w ires evident. Diameter of the ascending thoracic aorta is enlarged, measuring 4.2 cm. Moderate left coronary artery calcification noted. OTHER: None OSSEOUS: No significant osseous lesions.No acute fractures.. IMPRESSION: 1. Small tiny benign-appearing nodules in the lung tamayo, best evident on the MIP images. No conflu ent infiltrates nor pleural effusions. No significant intrathoracic adenopathy. 2. Dilated ascending thoracic aorta which measures 4.2 cm diameter. 3. Lung RADS Cat 2 - Benign Appearance / Behavior: Nodules with a very low likelihood of becoming a c linically active cancer due to size or lack of growth Lung-RADS 1.0 CATEGORIES: Category 0 - Prior chest CT exam(s) being located for comparison. Category 1 - Annual screening in 12 months. No nodules or definitely benign nodules. Category 2 - Annual screening in 12 months. Benign appearance. Nodules with low likelihood of becomin g active cancer. Category 3 - 6-month follow-up. Probably benign. Short-term follow-up suggested. Nodules with low lik elihood of becoming active cancer. Category 4A - 3-month follow-up and CT/PET if >8 mm in size. Suspicious finding. Findings which requi re additional testing. Category 4B - Findings which require additional testing and tissue sampling. Category 4X - Category 3 or 4 nodules with additional features or imaging findings that increases the suspicion of malignancy. Modifier S- Potentially clinically significant findings (non lung cancer) RADIATION DOSE DELIVERED: 86.44mGy.cm Total DLP DATA REPOSITORY: All CT scans at this facility are submitted to the National Radiology Data Registry (NRDR) Dose Index Registry (DIR) with the [employer] (ACR). RADIATION OPTIMIZATION: All CT scans at this facility use at least one of these dose optimization te chniques: automated exposure control; mA and/or kV adjustment per patient size (includes targeted exa ms where dose is matched to clinical indication); or iterative reconstruction.
== END ==
PROVIDERS: PCP Nurse Practitioner Family; Visit Provider Nurse Practitioner Family
DX: E11.9 Type 2 diabetes mellitus without complications (principal); F17.210 Nicotine dependence, cigarettes, uncomplicated; Z12.2 Encounter for screening for malignant neoplasm of respiratory organs; R91.8 Other nonspecific abnormal finding of lung field
CPT/HCPCS: 71271

== ENCOUNTER 2023-01-09 02:46 | Outpatient (CLI) | payer MEDICARE, SELFPAY ==
[2023-01-09 09:51] LABS: HCT 41.7 % (40.0-50.0); HGB 14.5 g/dL (13.5-17.5); MCH 30.9 pg (27.0-33.0); MCHC 34.8 % (32.0-36.0); MCV 89 fL (80-95); MPV 9.4 fL (8.0-11.0); Platelet Count 262 10^3/uL (130-400); RBC 4.69 10^6/uL (4.36-5.78); RDW 12.3 % (11.8-14.1); RDW-SD 40.1 fL; WBC 7.58 10^3/uL (4.4-10.8)
[2023-01-09 10:35] LABS: ALT 24 U/L (16-63); AST 15 U/L (15-37); Albumin 3.6 g/dL (3.4-5.0); Alkaline Phosphatase 98 U/L (46-116); Anion Gap 11.5 mmol/L (3-11); BUN 17 mg/dL (7-18); Bilirubin, Total 0.3 mg/dL (0.2-1.0); CO2 24.5 mmol/L (21.0-32.0); CREATININE 0.9 mg/dL (0.70-1.30); Calcium 9.5 mg/dL (8.5-10.1); Chloride 99 mmol/L (98-107); Cholesterol 318 mg/dL (<200); Estimated GFR 94.19 (mL/min/1.73m2); Glucose 208 mg/dL (74-106); HDL Cholesterol 41 mg/dL (40-60); Potassium 4.2 mmol/L (3.5-5.1); Sodium 135 mmol/L (136-145); Total Protein 7.5 g/dL (6.4-8.2); Triglyceride 429 mg/dL (<150)
[2023-01-09 10:52] LABS: LDL CHOLESTEROL 179 mg/dL (<100)
== END 2023-01-09 02:47 | disposition home or self-care (01) ==
PROVIDERS: PCP Nurse Practitioner Family; Visit Provider Nurse Practitioner Family
DX: E11.9 Type 2 diabetes mellitus without complications (principal); E78.5 Hyperlipidemia, unspecified; I10 Essential (primary) hypertension; I44.2 Atrioventricular block, complete; J44.9 Chronic obstructive pulmonary disease, unspecified; Z00.00 Encounter for general adult medical examination without abnormal findings; Z79.4 Long term (current) use of insulin; Z95.0 Presence of cardiac pacemaker
CPT/HCPCS: 36415; 80053; 80061; 83721; 85027

== ENCOUNTER → 2023-02-10 00:48 | Outpatient (CLI) | payer MEDICARE, SELFPAY ==
--- NOTE | 2023-02-10 07:00 | DI.US_ITS ---
APPROVED REPORT EXAM: Comprehensive 2D, Doppler, and color-flow Echocardiogram Patient Location: Out-Patient Lead Sales Consultant: Estrella Vickers RDCS (AE) Indications: Dilated ascending thoracic aorta, Cardiomyopathy, Pacemaker, CABG Other Information Study Quality: Fair. Technically limited study due to body habitus, smoker. Conclusion Normal left ventricular wall thickness and chamber size. Ejection fraction is 50 to 55%. There are no segmental wall motion abnormalities Normal right ventricular size and systolic function Both atria are normal in size There is no structural or hemodynamically significant valvular disease Dilated ascending aorta measuring 4.34 cm Device lead noted in the right heart Wall motion Left Ventricle The left ventricle is normal size. Left ventricular systolic function is borderline There is normal l eft ventricular wall thickness. No segmental wall motion abnormalities Left ventricular filling patte rn is normal for age. There is no ventricular septal defect visualized. LVEF is 50-55%. Right Ventricle Right ventricle is grossly normal in size. Right ventricular systolic function is grossly normal. Pac emaker lead is present in the right ventricle. Atria The left atrium size is normal. The right atrium size is normal. The interatrial septum is intact wit h no evidence for an atrial septal defect. Aortic Valve The aortic valve is normal in structure. Aortic valve is trileaflet. There is no aortic valvular sten osis. No aortic regurgitation is present. Mitral Valve The mitral valve is normal in structure. No evidence of mitral valve stenosis. Trace mitral regurgita tion. Tricuspid Valve The tricuspid valve is normal in structure. There is no tricuspid valve stenosis. Trace tricuspid reg urgitation. Unable to assess PA pressure. Pulmonic Valve Pulmonic valve is grossly normal in structure. There is no pulmonic valvular stenosis. There is no pu lmonic valvular regurgitation. Great Vessels The aortic root is normal in size. The ascending aorta is moderate to Aortic arch is not well visuali zed. severely dilated. IVC is normal in size and collapses >50% with inspiration. Pericardium There is no pericardial effusion. 2D Dimensions IVSD d PLAX 1.19 cm M: 0.6-1.2 Ao Root d 3.04 cm M: 3.1 - 3.7 LVPW d PLAX 1.17 cm M: 0.6 - 1.2 Ao Asc Diam d 4.34 cm M: 2.6 - 3.4 LVID d PLAX 4.08 cm M: 4.2 - 5.8 LVDs 3.16 cm M: 2.5 - 4.0 LV EF Teichholz 45.5 % FS 22.37 % LV EDV (Teich) 73.2 mL LV ESV (Teich) 39.8 mL M-Mode TAPSE 2.11 cm (M/F) >1.7 Auto EF LV EDV A4C 120.8 mL LV EDV A2C 141.8 mL LV EDV BP 130.9 mL LV ESV A4C 66.2 mL LV ESV A2C 76.7 mL LV ESV BP 72.3 mL LVEF(%) A4C 45.2 % LVEF(%) A2C 45.9 % LVEF(%) BP 44.8 % LV SV A4C 54.6 ml LV SV A2C 65.1 ml LV SV BP 58.7 ml LV CO A4C 3.3 L/min LV CO A2C 4.5 L/min LV CO BP 3.9 L/min HR A4C 60.61 BPM HR A2C 68.70 BPM LV EDV Index (BP) LA Volume LA Length A4C 5.1 cm LA Length A2C 6.0 cm LA Area A4C s 16.22 cm2 LA Area A2C s 24.49 cm2 LA Vol A4C A-L 43.94 mL LA Vol A2C A-L 85.38 mL LA Vol Biplane A-L 66.4 mL LA Vol/BSA A4C A-L LA Vol/BSA A2C A-L LA Vol/BSA BP A-L 29.5 mL/m2 LA Vol A4C MOD 40.1 mL LA Vol A2C MOD 79.5 mL LA Vol BP MOD 60.9 mL RA Volume RA Area A4C 14.4 cm2 RA ESV A4C (A-L) 38.2mL RA Vol/BSA A4C A-L RA Length A4C 4.6 cm RA ESV A4C (MOD) 36.8mL LV Diastology MV E' medial 0.067 (>0.07 m/s) MV E Vmax 0.57 (0.4-1.3 m/s) MV E/E' MED 8.50 (<14) MV A Vmax 0.75 (0.4-1.3 m/s) MV E' lateral 0.097 (>0.1 m/s) E/A Ratio 0.8 MV E/E' LAT 5.84 (<14) MV E' Average 0.082 m/s MV E/E'(average) 6.93 Aortic Valve AoV Vmax 1.42 m/s LVOT Vmax 0.96 m/s AoV Peak Grad 8.1 mmHg LVOT Peak Grad 3.7 mmHg AoV Area (Vmax) 2.38 cm2 LVOT VTI 0.174 m AoV VTI 0.284 m LVOT Mean Grad 2.0 mmHg AoV Mean Ramesh. 0.99 m/s LVOT SV 61.27 mL AoV Mean Grad 4.6 mmHg LVOT Diam s 2.10 cm AoV Area (VTI) 2.16 cm2 Velocity Ratio 0.68 Mitral Valve MV DT 332 (160-240 msec) MV Vmax TIPS 0.75 m/s MV Mean Grad 1.0 (<2mmHg) MV VTI 0.224 m Pulmonary Valve PV Vmax 1.37 (0.5-1.5 m/s) RVOT Vmax 0.72 m/s PV Peak Grad 7.5 mmHg RVOT Peak Gr. 2.1 mmHg PV Mean Ramesh 0.89 m/s RVOT VTI 0.133 m PV Mean Grad 3.8 mmHg RVOT Mean Gr. 1.1 mmHg Tricuspid Valve RA Pressure 3.00 mmHg TV S' 0.14 m/s
== END ==
PROVIDERS: PCP Nurse Practitioner Family; Visit Provider Nurse Practitioner Family
DX: I71.21 Aneurysm of the ascending aorta, without rupture (principal)
CPT/HCPCS: 93306

== ENCOUNTER → 2023-07-22 13:21 | Outpatient (BNVA) | payer MEDICARE, SELFPAY | PROVIDERS: PCP Nurse Practitioner Family; Visit Provider Student in an Organized Health Care Education/Training Program | DX: Z45.010 Encounter for checking and testing of cardiac pacemaker pulse generator [battery] (principal); I25.2 Old myocardial infarction | CPT/HCPCS: 93279 ==

== ENCOUNTER 2024-07-27 07:58 | Outpatient (CLI) | payer MEDICARE, SELFPAY ==
--- NOTE | 2024-07-27 07:45 | RT.EKG_ITS ---
APPROVED REPORT Exam: Resting ECG Reason for Exam: tachycardia Patient Location: O HR:74 bpm ECG Measurements Heart Rate 74 AXIS HI [id number] P [id number] QRSd 97 QRS 31 QT 358 T -79 QTc 398 Conclusion Afib/flut and V-paced complexes...other complexes, A-rate>240 No further rhythm analysis attempted due to paced rhythm Baseline wander in lead(s) V2
== END 2024-07-27 07:59 | disposition home or self-care (01) ==
LOC: DI.CARD 07:59
PROVIDERS: PCP Family Medicine; Visit Provider Student in an Organized Health Care Education/Training Program
DX: I44.2 Atrioventricular block, complete (principal); Z95.0 Presence of cardiac pacemaker; R00.0 Tachycardia, unspecified; I25.10 Atherosclerotic heart disease of native coronary artery without angina pectoris
CPT/HCPCS: 93010

== ENCOUNTER → 2024-07-27 12:49 | Outpatient (BNVA) | payer MEDICARE, SELFPAY | PROVIDERS: PCP Family Medicine; Referring Provider Family Medicine; Visit Provider Registered Nurse | DX: I25.10 Atherosclerotic heart disease of native coronary artery without angina pectoris (principal); Z45.018 Encounter for adjustment and management of other part of cardiac pacemaker; I44.2 Atrioventricular block, complete; R00.0 Tachycardia, unspecified; Z79.02 Long term (current) use of antithrombotics/antiplatelets; Z79.811 Long term (current) use of aromatase inhibitors | CPT/HCPCS: 93005; 93280; 99214 ==